=== PATIENT | male | born 1970 | race Hispanic/Latino ===

== ENCOUNTER 2019-07-17 11:07 | Emergency (ER) | payer SELFPAY ==
--- NOTE | 2019-07-17 11:31 | Emergency Department Report ---
ED Upper Extremity Inj HPI - General Chief Complaint: Extremity Injury, Upper Stated Complaint: FINGER CUT OFF Time Seen by Provider: 07/17/19 11:25 Source: patient Mode of arrival: Ambulatory Limitations: No Limitations - History of Present Illness Initial Comments: Patient is 48 years old male with no significant past medical history, no history of smoking. Patient presented to the ER stating that he was unfolding a ladder when the ladder fell on his left middle finger and amputated his tip of the finger. Patient denies any other injuries. Patient brought the tip of the finger wrapped in a moist gauze and placed on ice. This is happened approximately 1 hour ago. Complaint: Injury to:: left, finger -: Sudden Other Extremity Injury: Fingers: Left (2nd finger) Other Injuries: none Severity scale (0 -10): 5 Improves With: immobilization - Related Data Previous Rx's Medication Instructions Recorded Last Taken Type Ondansetron [Zofran Odt] 4 mg PO Q8HR PRN #14 tab.rapdis 07/17/19 Unknown Rx cephALEXin [Keflex] 500 mg PO Q8HR #28 cap 07/17/19 Unknown Rx traMADoL [Ultram 50 MG tab] 50 mg PO Q4HR PRN #14 tablet 07/17/19 Unknown Rx Allergies Allergy/AdvReac Type Severity Reaction Status Date / Time No Known Allergies Allergy Unverified 07/17/19 11:16 ED Review of Systems ROS: Stated complaint: FINGER CUT OFF Other details as noted in HPI Comment: All other systems reviewed and negative Constitutional: denies: chills, fever Cardiovascular: denies: chest pain, palpitations Gastrointestinal: denies: abdominal pain, nausea, vomiting Musculoskeletal: denies: back pain Neurological: denies: headache ED Past Medical Hx - Past Medical History Previous Medical History?: No - Surgical History Past Surgical History?: No - Social History Smoking Status: Never Smoker Substance Use Type: None - Medications Home Medications: Home Medications Medication Instructions Recorded Confirmed Last Taken Type Ondansetron [Zofran Odt] 4 mg PO Q8HR PRN #14 tab.rapdis 07/17/19 Unknown Rx cephALEXin [Keflex] 500 mg PO Q8HR #28 cap 07/17/19 Unknown Rx traMADoL [Ultram 50 MG tab] 50 mg PO Q4HR PRN #14 tablet 07/17/19 Unknown Rx ED Physical Exam - General Limitations: No Limitations General appearance: alert, in no apparent distress - Head Head exam: Present: atraumatic, normocephalic, normal inspection - Eye Eye exam: Present: normal appearance - ENT ENT exam: Present: normal exam, normal orophraynx, mucous membranes moist - Neck Neck exam: Present: normal inspection, full ROM. Absent: tenderness, meningismus - Respiratory Respiratory exam: Present: normal lung sounds bilaterally - Cardiovascular Cardiovascular Exam: Present: regular rate, normal rhythm, normal heart sounds - GI/Abdominal GI/Abdominal exam: Present: soft, normal bowel sounds. Absent: distended, tenderness, guarding, rebound, rigid, organomegaly, mass, bruit, pulsatile mass, hernia - Extremities Exam Extremities exam: Present: full ROM, normal capillary refill. Absent: pedal edema, calf tenderness - Expanded Upper Extremity Exam Left Hand Wrist exam: Present: other (Amputation of the tip of the left middle finger.) - Back Exam Back exam: Present: normal inspection, full ROM. Absent: CVA tenderness (R), CVA tenderness (L), muscle spasm - Neurological Exam Neurological exam: Present: alert, oriented X3, CN II-XII intact, normal gait, reflexes normal. Absent: motor sensory deficit ED Course Vital Signs 07/17/19 07/17/19 11:16 11:20 Temperature 98.1 F 98.0 F Pulse Rate 87 80 Respiratory 18 20 Rate Blood Pressure 184/82 Blood Pressure 195/102 [Right] O2 Sat by Pulse 94 96 Oximetry ED Medical Decision Making - Radiology Data Radiology results: report reviewed - Medical Decision Making Patient is 48 years old male with no significant past medical history, no history of smoking. Patient presented to the ER stating that he was unfolding a ladder when the ladder fell on his left middle finger and amputated his tip of the finger. Patient denies any other injuries. Patient brought the tip of the finger wrapped in a moist gauze and placed on ice. This is happened approximately 1 hour ago. X-ray showed amputation of the mid distal phalanx of the left middle finger. Patient received a tetanus shot. I discussed the patient with Dr. Langston, from [facility], hand surgeon. Dr. Langston advised that no revitalization will be done for this kind of injury. He advised to give him Ancef 1 g and Vaseline gauze and Keflex and to follow-up with him in his office on Monday07/19/2019. Patient given the number to call for the appointment which is [phone]. Patient advised to return to the ER if he develop any new excess bleeding. Critical care attestation.: If time is entered above; I have spent that time in minutes in the direct care of this critically ill patient, excluding procedure time. ED Disposition Clinical Impression: Amputation of finger tip Disposition: DC- TO HOME OR SELFCARE Is pt being admited?: No Condition: Stable Instructions: Finger Amputation (ED) Additional Instructions: Follow-up with Dr. Langston at [facility] on Friday, July 19, 2019. Call the #[phone] for the appointment. Prescriptions: cephALEXin [Keflex] 500 mg PO Q8HR #28 cap traMADoL [Ultram 50 MG tab] 50 mg PO Q4HR PRN #14 tablet PRN Reason: Pain Ondansetron [Zofran Odt] 4 mg PO Q8HR PRN #14 tab.rapdis PRN Reason: Nausea And Vomiting Referrals: SHERRY YOST MD [Primary Care Provider] - 3-5 Days
[2019-07-17] MEDS ORDERED: TETANUS,DIPH,PERTUSS(ACELL) VACCINE 0.5 ML SYRINGE IM ONE (11:33)
[2019-07-17] MEDS ORDERED: ACETAMINOPHEN 500 MG TAB PO ONE (11:33)
[2019-07-17] MEDS ORDERED: cloNIDine 0.1 MG TAB PO ONE (11:33)
--- NOTE | 2019-07-17 12:14 | XRay Report ---
LEFT MIDDLE FINGER ONE VIEW INDICATION / CLINICAL INFORMATION: Left middle finger injury. COMPARISON: None available. FINDINGS: BONES and JOINT(S): No acute fracture or subluxation. No significant arthritis. SOFT TISSUES: The tip of the left middle finger has been amputated with exposure of the tip of the di stal phalanx. Mild to moderate edema is seen throughout the middle finger. No radiopaque foreign bodi es are seen. ADDITIONAL FINDINGS: None. IMPRESSION: Partial amputation of the left middle finger. Signer Name: Yung Jaramillo MD Signed: 07/17/2019 12:09 PM Workstation Name: [id number]
[2019-07-17 12:17] VITALS: BP 195/102
[2019-07-17] MEDS ORDERED: ceFAZolin 1 GM VIAL IM ONE (12:25)
[2019-07-17] MEDS ORDERED: WATER FOR INJ Sterile (PF) 10 ML ONE (12:43)
[2019-07-17 13:40] LABS: Amphetamine Screen,Urine PRESUMPTIVE NEGATIVE; Benzodiazepines Screen,Urine PRESUMPTIVE NEGATIVE; Cannabinoid Screen,Urine PRESUMPTIVE NEGATIVE; Cocaine Screen,Urine PRESUMPTIVE NEGATIVE; Methadone Screen,Urine PRESUMPTIVE NEGATIVE; Opiate Screen,Urine PRESUMPTIVE NEGATIVE
== END 2019-07-17 13:18 | disposition home or self-care (01) ==
LOC: ED 11:07
DX: M79.645 Pain in left finger(s) (principal); Z89.022 Acquired absence of left finger(s); Z79.899 Other long term (current) drug therapy
CPT/HCPCS: 73140; 80307; 90471; 90715; 96372; 99284; J0690